=== PATIENT | female | born 1935 | race Native Hawaiian/Other Pacific Islander ===

== ENCOUNTER → 2017-10-10 13:40 | Outpatient (CLI) | payer OTHER ==
[~2017-10-10 13:40] MED LIST: AMBIEN CR12.5 MG OR; CIPRO500 MG PO; CLONIDINE0.1 MG OR; IRON325 MG OR; LABETALOL300 MG OR; LISI20TA11 PO; METF500T PO; PROMETHAZINE25 MG PO; RYBIX ODT50 MG OR; TRAM50TA PO
== END | disposition home or self-care (01) ==
LOC: AMB 13:40
DX: I10 Essential (primary) hypertension (principal)

== ENCOUNTER 2018-01-15 10:02 | Outpatient (CLI) | payer OTHER | END 2018-01-15 10:18 | disposition short-term general hospital (02) | LOC: AMB 10:02 | DX: R55 Syncope and collapse (principal) | CPT/HCPCS: A0425; A0427 ==